=== PATIENT | male | born 1960 | race Caucasian/White ===

== ENCOUNTER → 2022-10-08 09:59 | Outpatient (CLI) | payer OTHER, SELFPAY ==
--- NOTE | ~2022-10-08 | MR_ITS ---
MRI of the left forearm CLINICAL HISTORY: Pain TECHNIQUE: Axial T1-weighted and STIR images, coronal T1-weighted and STIR images, and sagittal T1-we ighted and STIR images were acquired. FINDINGS: Bone marrow signals are unremarkable. No evidence for fracture, bone marrow edema, or osteo myelitis. No significant osseous or articular abnormality seen at the elbow joint or wrist. No joint effusion evident. Visualized musculature of the forearm demonstrates normal signal intensity. No muscle atrophy or cher a identified. No mass lesion or fluid collection seen. Subcutaneous soft tissues are unremarkable. No abnormality seen in the location of the marker. IMPRESSION: No significant abnormality identified. Reviewed, dictated and finalized at location .
== END ==
PROVIDERS: PCP Family Medicine; Visit Provider Nurse Practitioner Family
DX: M79.632 Pain in left forearm (principal); E78.5 Hyperlipidemia, unspecified
CPT/HCPCS: 73218